=== PATIENT | male | born 1970 | race Two or more races ===

== ENCOUNTER 2020-11-14 06:22 | Inpatient (IN) | payer OTHER ==
[~2020-11-14] VITALS: Ht 175.3 cm; Wt 111.1 kg
[2020-11-14] VITALS (16 sets, daily range): BP systolic 92–116; BP diastolic 52–74
[~2020-11-14 06:22] MED LIST: ASPIRIN81 MG ORAL; METFORMIN HCL500 M1 ORAL
[2020-11-14] MEDS ORDERED: propofoL 1,000mg/100ml IV ONE (07:00)
[2020-11-14] MEDS ORDERED: ceFAZolin sod 1 GM in NS 55 ML IVPB ONE (07:00)
[2020-11-14] MEDS ORDERED: ATENOLOL25 MG ORAL (07:04)
[2020-11-14] MEDS ORDERED: LISINOPRIL-HCT1 EAC1 ORAL (07:04)
[2020-11-14] MEDS ORDERED: ATORVASTATIN CA20 MG ORAL (07:04)
[2020-11-14] MEDS ORDERED: Vancomycin 1gm vial IVPB ONE (07:23)
[2020-11-14] MEDS ORDERED: EPINEPHrine 1mg/1ml Amp ONE (07:23)
[2020-11-14] MEDS ORDERED: Bupivacaine 0.5% Inj 30 ml vial INJ ONE (07:24)
[2020-11-14] MEDS ORDERED: Thrombin 5000 units TOPIC ONE ×4 (07:24→07:56)
[2020-11-14] MEDS ORDERED: Bacitracin 50000 Units Vial ONE (07:24)
[2020-11-14] MEDS ORDERED: Lidocaine 1%/ 10mg/ml/EPI 0.01mg/ml 20ml INJ ONE (07:24)
[2020-11-14] MEDS ORDERED: fentaNYL 100 mcg/2 mL IV ONE (07:29)
[2020-11-14] MEDS ORDERED: Midazolam 2mg/2ml Inj ONE (07:29)
[2020-11-14] MEDS ORDERED: Lidocaine 1% MPF 10mg/ml 5ml ONE (07:29)
[2020-11-14] MEDS ORDERED: NS Irrig 1000ml IRRIG ONE ×2 (07:41→09:12)
[2020-11-14] MEDS: Gelfoam Size TOPIC ONE ×2 (07:43→09:12)
[2020-11-14] MEDS ORDERED: Succinylcholine 20mg/ml 10ml vial ONE (07:45)
[2020-11-14] MEDS ORDERED: Rocuronium Bromide 50mg/5ml Inj IV ONE (07:45)
[2020-11-14] MEDS ORDERED: Lacri-Lube Opth Oint 3.5gm ONE (07:52)
--- NOTE | 2020-11-14 08:11 | Anethesia Preoperative Eval ---
Anesthesia Pre-op PMH/ROS General Date of Evaluation: Nov 14, 2020 Time of Evaluation: 08:07 Anesthesiologist: Nirali ASA Score: ASA 3 Mallampati Score Class I : Soft palate, uvula, fauces, pillars visible Class II: Soft palate, uvula, fauces visible Class III: Soft palate, base of uvula visible Class IV: Only hard plate visible Mallampati Classification: Class III Surgeon: Nevaeh Diagnosis: Lumbar radiculopathy Surgical Procedure: Lumbar laminotomy Anesthesia History: none Family History: no anesthesia problems Allergies: Coded Allergies: No Known Allergies (Unverified , 11/10/20) Medications: see eMAR Patient NPO?: Yes Past Medical History Cardiovascular: Reports: HTN - stable on meds; Denies: CAD, ME, valve dz, arrhythmia, other Pulmonary: Denies: asthma, COPD, HAL, other Gastrointestinal/Genitourinary: Reports: GERD; Denies: CRI, ESRD, other Neurologic/Psychiatric: Reports: other - chronic pain Endocrine: Reports: DM - stable on pills; Denies: hypothyroidism, steroids, other HEENT: Denies: cataract (L), cataract (R), glaucoma, [place] (L), [place] (R), other Hematology/Immune: Denies: anemia, DVT, bleeding disorder, other Musculoskeletal/Integumentary: Reports: OA; Denies: RA, DJD, DDD, edema, other Other: obesity PMH Narrative: as above PSxH Narrative: knee arthroscopy Anesthesia Pre-op Phys. Exam Physician Exam Last Vital Signs Date Time Temp Pulse Resp B/P (MAP) Pulse Ox O2 Delivery O2 Flow Rate FiO2 11/14/20 07:41 Room Air 11/14/20 06:57 97.8 72 18 116/74 97 Constitutional: NAD Neurologic: CN 2-12 intact Cardiovascular: RRR, no M/R/G Respiratory: CTA Gastrointestinal: other - obesity Airway Exam Mallampati Score: Class III MO: limited Neck: short ROM: limited Teeth: missing Dentures: no upper, no lower Anesthesia Pre-op A/P Labs see chart Accucheck 122 at admission Studies Pre-op Studies: EKG - SR Risk Assessment & Plan Assessment: ASA 3 Plan: GA with ETT prone position, neuromonitoring Status Change Before Surgery: No Pre-Antibiotics Drug: Ancef 2gr. Given Within 1 Hr of Incision: Yes Time Given: 09:32 Preston Campoverde MD Nov 14, 2020 08:11
[2020-11-14] MEDS ORDERED: Glycopyrrolate 0.2mg/ml 1ml Vial ONE ×2 (08:30→11:29)
[2020-11-14] MEDS ORDERED: LR 1000ml ONE (08:30)
[2020-11-14] MEDS ORDERED: Neostigmine 1mg/ml 10ml Inj ONE (08:30)
[2020-11-14] MEDS ORDERED: Acetaminophen (Non formulary) 100 ML IV ONE (08:45)
--- NOTE | 2020-11-14 09:08 | Pre-Procedure Note/Attestation ---
Pre-Procedure Note/Attestation Complete Prior to Procedure Procedure Narrative: L45S1 B laminoforaminotomy/discectomy Indications for Procedure Pre-Operative Diagnosis: L4-S1 stenosis with radiculopathy Attestation I attest that I discussed the nature of the procedure; its benefits; risks and complications; and alternatives (and the risks and benefits of such alternatives), prior to the procedure, with the patient (or the patient's legal hospital insurance representative). I attest that, if there was a reasonable possibility of needing a blood transfusion, the patient (or the patient's legal hospital insurance representative) was given the [facility] standardized written summary, pursuant to the Scooby Jose Blood Safety Act ([place] Health and Safety Code # 1645, as amended). I attest that I re-evaluated the patient just prior to the surgery and that there has been no change in the patient's H&P, except as documented below: Fadi Herring MD Nov 14, 2020 09:08
--- NOTE | 2020-11-14 09:10 | Brief Operative Note ---
Immediate Post Operative Note Operative Note Pre-op Diagnosis: L4-S1 stenosis with radiculopathy Procedure: L4-S1 laminoforaminotomy Post-op Diagnosis: same as pre-op Findings: consistent w/pre-op dx studies Surgeon: pallavi [place] Clerk: Kezia IBRAIHM Anesthesiologist: axel Anesthesia: general Specimen: none Complications: none Condition: stable Fluids: 1200cc Estimated Blood Loss: volume - 150 Drains: hemovac Implant(s) used?: No Fadi Herring MD Nov 14, 2020 09:10
[2020-11-14] MEDS ORDERED: Sodium Chloride 10ml vial INJ ONE ×2 (09:34→09:48)
[2020-11-14] MEDS ORDERED: ePHEDrine 50mg/ml Inj ONE (09:34)
[2020-11-14] MEDS ORDERED: Morphine Sulfate 10mg/ml Inj ONE (09:44)
--- NOTE | 2020-11-14 10:12 | NUR ---
CASE MANAGEMENT:INITIAL REVIEW 49 YR OLD MALE FROM HOME FOR SCHEDULED SURGERY CC;L4-S1 STENOSIS W/RADICULOPATHY SI;L4-S1 LAMINOFORAMINOTOMY 98.8 72 18 116/74 97% ON RA COVID RAPID ~ NOT DETECTED TYPE AND CROSS IS;CEFAZOLIN IV VANCOMYCIN IV MAG SULFATE IV IN SURGICAL RECOVERY
[2020-11-14] MEDS ORDERED: Ketorolac 30mg Inj IV PRN (10:15)
[2020-11-14] MEDS ORDERED: LR 1000ml 1,000 ML IVLG SCH (10:15)
[2020-11-14] MEDS ORDERED: Hydromorphone 0.5mg/0.5ml inj IVP PRN ×2 (10:15→19:15)
[2020-11-14] MEDS ORDERED: DiphenhydrAMINE 50mg/ml Inj IVP PRN (10:15)
[2020-11-14] MEDS ORDERED: Meperidine 25mg/1ml Inj (FOR RIGORS ONLY) IV PRN (10:15)
--- NOTE | 2020-11-14 11:56 | Diagnostic Imaging Report ---
INDICATION: Pain, intraoperative TECHNIQUE: Intraoperative imaging Fluoroscopy time: 3.1 seconds Total dose: 0.91510 mGym2 Total number of images: 2 COMPARISON: None FINDINGS: Intraoperative images demonstrate surgical tool posterior to what is presumably the L4-5 disc. IMPRESSION: Intraoperative imaging, as described
[2020-11-14] MEDS ORDERED: Metoclopramide 10mg/2ml Inj IVP PRN (12:00)
--- NOTE | 2020-11-14 12:45 | Immediate Post-Op Evaluation ---
Immediate Post-Op Evalulation Immediate Post-Op Evalulation Procedure: L4-L5, L5-S1 laminotomy with decompression Date of Evaluation: Nov 14, 2020 Time of Evaluation: 12:44 IV Fluids: 100 Blood Products: none Estimated Blood Loss: 150 Urinary Output: 250 Blood Pressure Systolic: 96 Blood Pressure Diastolic: 54 Pulse Rate: 82 Respiratory Rate: 20 O2 Sat by Pulse Oximetry: 98 Temperature (Fahrenheit): 97.6 Pain Score (1-10): 1 Nausea: No Vomiting: No Complications none Patient Status: reacts, patent, none Hydration Status: adequate Preston Campoverde MD Nov 14, 2020 12:45
--- NOTE | 2020-11-14 13:15 | Operative Note - Dictated ---
DATE OF OPERATION: 11/14/2020 SURGEON: Fadi Herring MD. RECYCLABLE MATERIALS SORTER: Moi Mast PA-C. ANESTHESIOLOGIST: Preston Campoverde MD. ANESTHESIA: General endotracheal anesthesia. PREOPERATIVE DIAGNOSIS: Spinal stenosis L4 through S1. POSTOPERATIVE DIAGNOSIS: Spinal stenosis L4 through S1. PROCEDURE: 1. Right-sided L4/L5 laminoforaminotomy. 2. Right-sided L5-S1 laminoforaminotomy. 3. Left-sided L4-L5 laminoforaminotomy. 4. Left-sided L5-S1 laminoforaminotomy. 5. Lysis of adhesions/neurolysis, L5-S1 bilaterally. 6. Use of operating microscope. 7. Neurodiagnostic monitoring. 8. Use of fluoroscopy for localization purposes. ESTIMATED BLOOD LOSS: 150 mL. COMPLICATIONS: None. FINDINGS: Severe foraminal stenosis bilaterally L5-S1 requiring a thorough foraminotomy and facetectomy, partial bilaterally. INDICATIONS: The patient is a very pleasant 49-year-old with fairly significant and intractable back pain with lower extremity radiculopathy. Surgical indications were deemed necessary once conservative care had failed, epidurals only gave temporary relief, and positive neurodiagnostic monitoring findings were noted. RISK NOTE: The patient was explained in detail risks and benefits of surgery to include, but not be limited to those of bleeding, infection, damage to nerves, vessels, tendons, anesthetic risk, allergic reaction, aspiration, possibly . The patient understood and wished to proceed. OPERATIVE PROCEDURE IN DETAIL: The patient was taken to the operating suite. After general endotracheal anesthesia was induced, Brooks catheter was placed. He was turned prone onto a radiolucent table with Abimael frame. The back was then prepped in the usual sterile fashion. The spinal needles were placed at what was felt to be the L5-S1 level. Radiographically L5-S1, S1-S2 was confirmed. At this point, an incision was marked out from L4 through S1. Skin was infiltrated with lidocaine and Marcaine with epinephrine. Incision was sharply carried down through subcutaneous. Subperiosteal dissection was carried out at L4 through S1. Fluoroscopic confirmation of the L4-L5 level was obtained. A self-retaining retractor was put into place. Attention was first turned to the L4-L5 level and a right-sided laminoforaminotomy was performed using standard technique using high-speed drill, Kerrison punch, curved curettes, ligamentum flavum was removed in a piecemeal fashion. A 30% medial facetectomy was performed to achieve decompression of the foramen as well as the lateral gutters. Once the decompression was fully achieved, attention was turned to the left side and under microscopic visualization an identical left-sided laminoforaminotomy was performed at L4-L5. Subsequently, a laminoforaminotomy at L5-S1 was performed first on the left than on the right. Please note that the leading edge of the lamina of L5 was quite stenotic and downsloping, which required a thorough laminotomy of the northern border of the L5 bilaterally which decompressed the inlet of the neural foramen at L5-S1. A generous laminoforaminotomy from L5 and S1 was required to remove portion of the leading edge of the facet joint so as to decompress the traversing area of the foramen. Extensive scarring and epidural adhesions bilaterally at L5-S1 was noted and meticulous neurolysis was required to allow for free passage of the nerve. Copious irrigation was performed. FloSeal was applied at both lateral gutters at L4-L5 and L5-S1 bilaterally. Once satisfied with the decompression, decision was made to close. A 400 mg of vancomycin powder was placed deep to the fascia. Fascia was repaired using #1 Vicryl. Suprafascial drain was placed and the remaining 100 mg of vancomycin was placed above the fascia. The deep fascia was repaired using #1 figure of eight sutures. The subcutaneous closure was performed using 2-0 Vicryl and Dermabond. Sterile dressing was applied. The patient was turned onto his back, awakened and at time of this dictation was awaiting extubation. Fadi Herring M.D. DR: JULIO JOB#: [id number] CC:
--- NOTE | 2020-11-14 14:00 | NUR ---
NURSE NOTES: Received report from Cindy CANTRELL, patient laying in bed a/a/o x4 with no sign of distress or other issues at this time. patient has a hemovac, with no drainage as right now. Brooks cath was removed prior to coming to the floor, 300ml out. surgical dressing dry and intact, ice pack placed. SCD's in place. RN will review orders and will carry on as indicated. I will f/u as needed.
[2020-11-14] MEDS: D5 1/2NS 1,000 ML IV SCH (15:00)
[2020-11-14] MEDS ORDERED: HYDROcodone/Acetamin 10/325 tab ORAL SCH (17:30)
[2020-11-14] MEDS ORDERED: HYDROcodone/Acetamin 10/325 tab ORAL ONE (17:30)
[2020-11-14] MEDS: Docusate 100mg cap ORAL SCH (18:08)
[2020-11-14] MEDS: ceFAZolin sod 1 GM in D5W 55 ML IV SCH (18:15)
[2020-11-14] MEDS ORDERED: Milk of Magnesia 30ml Ud ORAL PRN (19:15)
[2020-11-14] MEDS ORDERED: Chloraseptic Spray 20mL Bottle ORAL PRN (19:15)
--- NOTE | 2020-11-14 19:30 | NUR ---
NURSE HAND-OFF: Important Events on Shift: Patient Status: full code/ stable Diet: CCHO medium diet Pending Orders: Pending Results/Labs: Pending MD notification: Latest Vital Signs: Temperature 97.7 , Pulse 84 , B/P 98 /66 , Respiratory Rate 20 , O2 SAT 100 , Nasal Cannula, O2 Flow Rate 3 . Vital Sign Comment: stable Latest Dexter Fall Score: 20 Fall Risk: Low Risk Safety Measures: Call light Within Reach, Bed Alarm , Side Rails Side Rails x1, Bed position Low and Locked. Fall Precautions: needs assistance Report given to Devin CANTRELL, patient in stable condition. - patient is able to void after Brooks was removed. - Hemovac in place draining well. total put put during my shift 20ml - surgical dressing dry and intact
--- NOTE | 2020-11-14 20:10 | NUR ---
NURSE NOTES: Patient in bed, awake, alert x 4. Able to make needs known. No complaint of pain or discomfort at the moment. Skin is warm and dry to touch. Noted with posterior hemovac, intact, draining. Iv site noted, iv fluid is infusing as ordered. Respiration is even and unlabored. Bed in low and locked position. provided safe environment. Call light is at bedside. Will continue plan of care.
[2020-11-14] MEDS: NovoLOG Insulin Flexpen SUBQ SCH (21:00)
--- NOTE | 2020-11-14 21:00 | Consultation ---
DATE OF CONSULTATION: 11/14/2020 REFERRING PHYSICIAN: Fadi Herring M.D. Dr. Fadi Herring, thank you kindly for consulting me to evaluate and render an opinion on as to how to proceed in the management of this patient's acute postoperative lumbar spine pain after his multiple-level decompressive surgery today. The patient is a pleasant 49-year-old gentleman who injured his lumbar spine in a work-related injury. After today's multilevel lumbar spine decompressive surgery, the patient complained of significant discomfort and you consulted me to help with this patient's postoperative care and pain management. I saw the patient at bedside with the nurse, TAMIA Morrow. I discussed the case with yourself, Dr. Herring, along with the hospital pharmacist and the recovery room nurse, TAMIA Christian. I spent over 75 minutes in consultation with an additional 30 minutes in medical record review. Multiple records were reviewed including utilization review and surgical authorization by [employer] on October 24, 2020, authorizing lumbar spine surgery with hospitalization as certified. Further records reviewed include preoperative history and physical by Dr. Chase Jean dated November 10, 2020 along with diagnostic testing. I also reviewed reports from Dr. Fadi Herring, surgical outpatient clinic, date of service September 15, 2020 along with reports from the patient's research attorney on October 30, 2020 from the [employer]. Multiple records were reviewed from today's date of surgery at [facility] dated November 14, 2020 including operative report and postoperative spine surgery orders by Dr. Fadi Herring, consent for surgical treatment, consent for anesthesia, consent for blood products, medication administration record, medication reconciliation order form, PACU record, PACU orders, anesthesia record, pre- and post-anesthesia evaluation record, surgical invasive procedure checklist, perioperative nurse plan of care, initial nursing assessment, guidelines for prophylactic antibiotics, guidelines for DVT prophylaxis, Farris-Junior diagram for cognitive disability. PAST MEDICAL HISTORY: 1. Acute postoperative lumbar spine pain status post multiple-level bilateral lumbar spine decompressive surgery by Dr. Fadi Herring in October 2020. 2. Work-related injury. 3. Obesity. 4. Diabetes. 5. Hypertension. 6. Hypercholesterolemia. 7. Distant tobacco usage. PAST SURGICAL HISTORY: Bilateral knee arthroscopies. FAMILY HISTORY: Father at age 67. Mother at age 78. Brother from cancer. SOCIAL HISTORY: The patient lives at home with his near [place], [place]. The patient quit tobacco usage a year ago after a decade of usage. The patient drinks alcohol rarely and denies marijuana usage. ALLERGIES: No known drug allergies. REVIEW OF SYSTEMS: Per attending physician. PHYSICAL EXAMINATION: VITAL SIGNS: Age 49, height 5 feet 9 inches, weight 111 kg, body mass index 36. Current vital signs, afebrile, pulse 84, respirations 20, blood pressure 100/62, oxygen saturation 100% on room air. HEENT: Normocephalic and atraumatic. Extraocular muscles intact. Pupils are equal, round, and accommodative. No Ruvalcaba palsy. No Brooklynn syndrome. No nuchal rigidity. CHEST: Clear to auscultation. Bibasilar crackles, likely secondary to chronic smoking and obesity along with postoperative atelectasis. No wheezing, rales, rhonchi, or accessory muscle use noted. HEART: Regular rate and rhythm. Positive S4. Normal S1, S2. No S3 appreciated. ABDOMEN: Positive obesity. Positive bowel sounds. No rebound or guarding. SPINE: Lumbar spine shows pain with log-rolling. A lumbar spine Hemovac drain is in place holding to suction. NEUROLOGIC: The patient is grossly moving all extremities x4. He has 5/5 dorsiflexion and 5/5 plantar flexion in bilateral lower extremities. NEUROLOGIC: Detailed neurologic exam deferred to Dr. Herring. GENITOURINARY: Deferred. LABORATORY AND DIAGNOSTIC DATA: Laboratory studies from November 13, 2020 show urinalysis is negative. INR 1.1. PTT 27. Glucose 90, sodium 142, potassium 4.1, chloride 102, bicarb 30, BUN 14, creatinine 1.0, calcium 10, total protein 7.2, albumin 4.6, alk phos 43, AST 27, ALT 40, total bilirubin 0.6. White count 8, hematocrit 43, platelets 260. Glycosylated hemoglobin high normal at 6.8. Preoperative 12-lead EKG shows normal sinus rhythm, ventricular rate 74. No evidence for acute cardiac ischemia. Preoperative chest x-ray dated November 10, 2020 shows no acute cardiopulmonary process. MRI of the lumbar spine dated February 17, 2020 shows impression of L4-5 with mild to moderate bilateral facet degenerative changes with a 4 mm to 5 mm anterior-posterior diameter broad-based posterior disc osteophyte complex with mild spinal stenosis. L5-S1, mild bilateral facet degenerative disease with minimal retrolisthesis of L5 over S1. There is a 3 mm to 4 mm in AP diameter broad-based posterior disc osteophyte complex with moderate to severe bilateral neural foraminal narrowing. IMPRESSION: 1. Acute postoperative lumbar spine pain status post multiple-level bilateral lumbar spine decompressive surgery by Dr. Fadi Herring in October 2020. 2. Work-related injury. 3. Obesity. 4. Diabetes. 5. Hypertension. 6. Hypercholesterolemia. 7. Distant tobacco usage. TREATMENT RECOMMENDATIONS: After my examination of the patient and review of the medical chart, I have devised the following analgesic plan. The patient does not appear to be anxious and with his obesity, I would try to avoid the class of benzodiazepines, which might potentiate respiratory depression while we use potent opioid analgesics to help with his postoperative pain. I have started him with a dose of Dilaudid 0.5 mg intravenously every 2 hours p.r.n. for severe breakthrough pain. The patient does state that he has tolerated hydrocodone after a root canal surgery in the past. Therefore, I will order a dose of [place] 10/325 mg to be trialed orally every 3 hours p.r.n. for moderate pain complaints. I have added a dose of Fioricet 1 tablet orally every 8 hours in case of any postoperative headaches. In case of itching or insomnia symptoms, I have ordered Benadryl 25 mg orally every 6 hours p.r.n. I have also ordered a rescue dose of Zofran as an antiemetic p.r.n. at a dose of 4 mg intravenously every 4 hours. In case of any postoperative sore throat complaints, I have ordered Chloraseptic spray to be placed at the bedside. I will empirically place the patient on Pepcid 20 mg b.i.d. to help with GI ulcer prophylaxis, and I have ordered a p.r.n. dose of Mylanta 30 mL q.6h. in case of any GERD symptom exacerbations. The patient has been placed on Colace 100 mg b.i.d. to help with bowel regularity, and I have ordered a rescue laxative dose of milk of magnesia daily at a dose of 30 mL. For the patient's hypertension and diabetes, we will monitor his blood pressure frequently. Currently, his systolic blood pressure is 100 mmHg. His outpatient antihypertensive medications will be placed on hold for now. We will continue to evaluate if high blood pressure develops. The patients with high blood pressure often has labile blood pressure readings in the immediate postoperative period. The patient states that his blood sugars are normally fairly well controlled as he takes Accu-Cheks at home b.i.d. We will place him on a sliding scale insulin protocol here in the hospital and restrict his diet to a diabetic ADA 2000 calories. Metformin will be restarted in the morning at his baseline home dose. I have ordered incentive spirometer to encourage good pulmonary toilet with his smoking history. Sequential compression pneumatic devices have been placed by the surgeon, Dr. Herring, for DVT prophylaxis. We will see how the patient progresses with physical therapy training in the morning, and we will follow the output from the indwelling lumbar spine drain catheter. Chivo Segundo M.D. DR: ALFONSO JOB#: [id number] CC:
--- NOTE | 2020-11-14 22:00 | NUR ---
NURSE NOTES: Dr. Segundo called, new orders received, noted and carried out.
[2020-11-15] MEDS: D5 1/2NS 1,000 ML IV SCH ×2 (00:16→10:00)
[2020-11-15] MEDS: ceFAZolin sod 1 GM in D5W 55 ML IV SCH ×2 (01:31→08:55)
[2020-11-15 03:52] VITALS: BP 111/68
[2020-11-15 06:06] LABS: ANION GAP 6 mmol/L (5-15); BLOOD UREA NITROGEN 10 mg/dL (7-18); CALCIUM 8.8 MG/DL (8.5-10.1); CARBON DIOXIDE 30 MMOL/L (21-32); CHLORIDE 102 MMOL/L (98-107); CREATININE 1.1 MG/DL (0.55-1.30); POTASSIUM 4.1 MMOL/L (3.5-5.1); SODIUM 138 MMOL/L (136-145)
[2020-11-15] MEDS: NovoLOG Insulin Flexpen SUBQ SCH ×2 (06:30→11:30)
--- NOTE | 2020-11-15 07:30 | NUR ---
NURSE NOTES: Patient lying in bed awake. No complain of pain or distress at this time. Skin intact and dry. Surgical dressing intact and dry. Hemovac patent and draining well. IV dressing intact and dry. Bed lowest position and side rails up. Call light within reach. Will continue to monitor.
[2020-11-15 08:00] VITALS: BP 121/79
--- NOTE | 2020-11-15 08:33 | 48 Hour Post Anesthesia Eval ---
Post Anesthesia Evaluation Procedure: L4-L5, L5-S1 laminotomy with decompression Date of Evaluation: Nov 15, 2020 Time of Evaluation: 08:32 Blood Pressure Systolic: 124 0: 76 Pulse Rate: 78 Respiratory Rate: 20 Temperature (Fahrenheit): 97.8 O2 Sat by Pulse Oximetry: 98 Airway: patent Nausea: No Vomiting: No Pain Intensity: 2 Hydration Status: adequate Cardiopulmonary Status: stable Mental Status/LOC: patient returned to baseline Follow-up Care/Observations: n/a Post-Anesthesia Complications: none Follow-up care needed: N/A Preston Campoverde MD Nov 15, 2020 08:33
[2020-11-15] MEDS: Docusate 100mg cap ORAL SCH (08:54)
[2020-11-15] MEDS: HYDROcodone/Acetamin 10/325 tab ORAL PRN ×2 (08:55→13:01)
--- NOTE | 2020-11-15 08:55 | NUR ---
P.T Note: P.T evaluation completed and tx initiated per spinal protocol. Please refer to P.T evaluation for current functional status.
[2020-11-15] MEDS ORDERED: metFORMIN 500mg tab ORAL SCH (09:00)
--- NOTE | 2020-11-15 10:51 | NUR ---
CASE MANAGEMENT:REVIEW SI;POD #1 L4-S1 LAMINOFORAMINOTOMY 98.8 100 20 121/79 95% ON RA IS;PEPCID PO BID NORCO PO Q3 PRN IVF D5NS @ 100 ML/HR MED SURG STATUS DCP;FROM HOME PLAN; PT PER PROTOCOL ENCOURAGE INCENTIVE SPIROMETER
[2020-11-15] MEDS ORDERED: ASPIRIN EC81 MG ORAL (11:55)
[2020-11-15] MEDS ORDERED: NAPROXEN500 M2 ORAL (11:55)
[2020-11-15 12:00] VITALS: BP 117/83
--- NOTE | 2020-11-15 13:05 | Pain Management Progress Note ---
Allergies: Coded Allergies: No Known Allergies (Unverified , 11/10/20) Vitals Vital Signs Date Time Temp Pulse Resp B/P (MAP) Pulse Ox O2 Delivery O2 Flow Rate FiO2 11/15/20 12:00 97.9 119 18 117/83 (94) 96 11/15/20 09:00 Room Air 11/15/20 08:33 78 20 98 11/15/20 08:00 98.8 100 18 121/79 (93) 95 Medications Current Medications Acetaminophen (Tylenol) 650 mg Q4H PRN ORAL Temp >100.5; Start 11/14/20 at 21:45; Stop 12/14/20 at 21:44 Acetaminophen/ Butalbital/ Caffeine (Fioricet) 1 tab Q8H PRN ORAL headache; Start 11/14/20 at 19:15; Stop 12/14/20 at 19:14 Acetaminophen/ Hydrocodone Bitart (Barco 10/325) 1 tab Q3H PRN ORAL Moderate Pain (Pain Scale 4-6) Last administered on 11/15/20at 08:55; Start 11/14/20 at 19:15; Stop 11/21/20 at 19:14 Al Hydroxide/Mg Hydroxide (Mylanta) 30 ml Q6H PRN ORAL GERD; Start 11/14/20 at 19:15; Stop 12/14/20 at 19:14 Dextrose (Dextrose 50%) 25 ml Q30M PRN IV Hypoglycemia; Start 11/14/20 at 17:30; Stop 02/12/21 at 17:29 Dextrose (Dextrose 50%) 50 ml Q30M PRN IV Hypoglycemia; Start 11/14/20 at 17:30; Stop 02/12/21 at 17:29 Dextrose/Sodium Chloride 1,000 ml @ 100 mls/hr Q10H IV Last administered on 11/15/20at 00:16; Start 11/14/20 at 14:00; Stop 12/14/20 at 13:59 Diphenhydramine HCl (Benadryl) 25 mg Q6H PRN ORAL Itching/insomnia; Start 11/14/20 at 19:15; Stop 12/14/20 at 19:14 Docusate Sodium (Colace) 100 mg TWICE A DAY ORAL Last administered on 11/15/20at 08:54; Start 11/14/20 at 18:00; Stop 12/14/20 at 17:59 Famotidine (Pepcid) 20 mg BID ORAL Last administered on 11/15/20at 08:54; Start 11/15/20 at 09:00; Stop 02/13/21 at 08:59 Hydromorphone HCl (Dilaudid) 0.5 mg Q2H PRN IVP Severe Breakthru Pain (>7); Start 11/14/20 at 19:15; Stop 11/21/20 at 19:14 Insulin Aspart (NovoLOG) BEFORE MEALS AND HS SUBQ ; Start 11/14/20 at 21:00; Stop 02/12/21 at 20:59 Magnesium Hydroxide (Mom) 30 ml DAILYPRN PRN ORAL Constipation; Start 11/14/20 at 19:15; Stop 12/14/20 at 19:14 Metformin HCl (Glucophage) 1,000 mg TWICE A DAY ORAL Last administered on 11/15/20at 08:54; Start 11/15/20 at 09:00; Stop 12/15/20 at 08:59 Ondansetron HCl (Zofran) 4 mg Q4H PRN IVP Nausea & Vomiting; Start 11/14/20 at 19:15; Stop 12/14/20 at 19:14 Phenol/Menthol (Chloraseptic) 1 spray Q2H PRN ORAL sore throat; Start 11/14/20 at 19:15; Stop 02/12/21 at 19:14 Laboratory Laboratory Tests 11/15/20 04:58: Sodium Level 138, Potassium Level 4.1, Chloride Level 102, Carbon Dioxide Level 30, Anion Gap 6, Blood Urea Nitrogen 10, Creatinine 1.1, Estimat Glomerular Filtration Rate > 60, Glucose Level 136H, Calcium Level 8.8 11/15/20 11:51: POC Whole Blood Glucose [Pending] Plan: Patient seen with nursing Brian. Discussed with surgeon Dr Herring. A+O x 3. Neuro intact. VSS. No chest pain or SOB. Pain level 5 / 10 on the visual-analog pain scale. Continue pain regimen as ordered. Barco well-tolerated. MAR medication list reviewed. Advancing diet tolerated without emesis. BP and blood sugars WNL. GI: +BS +flatus No BM Encourage incentive spirometer usage. Encourage advancing ambulation with physical therapy as tolerated. Already ambulated > 200 feet. SCDs for mechanical prophylaxis against deep venous thrombosis and PEs. Discussed discharge planning with RNs & surgeon to help expedite hospital discharge. Pt feels comfortable with discharge trial home later today. can pickup pt and assist with ADL in their [place] home. Patient will f/u with surgeon in outpt surgical clinic. Rx left for outpatient pain medication usage for #50 Barco 10/325. Hemovac drain output ~50 cc over the past shift; 30 cc during nightshift. With the RN Brian at bedside, lumbar spine wound site dressing removed sterilely. Suture-line appears dry and intact with [place] sealant intact. No erythema or exudate noted. At end-expiration, with the hemovac drain taken [id number], I personally removed the indwelling lumbar spine drain catheter sterilely. Tip intact. Drain hole & incision-line swabbed with alcohol. Dressing with sterile bandage. No complications. Chivo Segundo MD Nov 15, 2020 13:05
--- NOTE | 2020-11-15 13:07 | NUR ---
NURSE NOTES: Seen and evaluated by and removed Hemovac by . Per : he spoke to and cleared to discharge patient today. Order noted and carried out.
--- NOTE | 2020-11-15 13:35 | NUR ---
SHUTTLE [employer]GG[employer] OPERATOR NOTE DME ORDER NOTED. CALL MADE TO JOHN FADIA ODESSA [phone] FOR ORDER OF DME (RAISED TOILET SEAT). NO ANSWER AT TIME OF CALL. VM LEFT REQUESTING CALL BACK. WILL FOLLOW UP.
--- NOTE | 2020-11-15 14:35 | NUR ---
NURSE NOTES: Patient discharged with family member instable condition. Discharge instruction given to patient and verbalized understanding. Belonging and prescription given to patient. Instructed to follow up with home medication and make follow up appointment with MD and verbalized understanding. IV and ID removed. Brought down to private car by wheelchair.
--- NOTE | 2020-11-15 15:10 | NUR ---
NURSE NOTES: Spoke to regarding home medication Aspirin. Per : hold Aspirin for 5 days and continue. Notified patient to hold Aspirin for 5 days and continue. Patient verbalized understanding.
--- NOTE | 2020-11-17 12:29 | Discharge Summary ---
Discharge Summary Discharge Summary _ Date of admission: 11/14/2020 Date of discharge: 11/15/[address] Herring History of Present Illness and Brief Hospital Course Mr. 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 The patient had significant and intractable back pain with lower extremity radiculopathy. Conservative management and epidurals did not adequately control his symptoms. At this point, surgical intervention was deemed appropriate. Patient agreed to have surgery. He underwent bilateral L4-L5, L5-S1 laminal foraminotomy as well as lysis of adhesions/neurolysis at L5-S1 bilaterally. He was placed on Dilaudid for a severe breakthrough pain. He was also given [place] for moderate pain complaints. Fioricet was added for any postoperative headaches. Benadryl was given for itching or insomnia. Zofran was given as an antiemetic he was also provided with Chloraseptic spray for postoperative sore throat. Other regimen include pepcid for GI ulcer prophylaxis, as needed Mylanta for GERD symptom exacerbations, Colace for bowel regularity, and a rescue laxative dose of milk of magnesia. His blood pressure was monitored frequently. He was encouraged to use incentive spirometer for good pulmonary toilet with his smoking history. He was also placed on sequential compression pneumatic devices for DVT prophylaxis. After a period of observation, patient was medically stable for discharge. Patient was discharged home on 11/15/2020 in stable condition. Consultants: Anesthesiology Dr. Segundo Discharge Condition Improved and stable Discharge Activity Advance as tolerated Discharge Diet Diabetic diet Final diagnoses Obesity Diabetes mellitus Hypertension Hypercholesterolemia Ex-smoker Work-related injury Foraminal stenosis bilaterally at L5-S1 Status post bilateral L4-L5 L5-S1 laminal foraminotomy Status post lysis of adhesions/neurolysis at L5-S1 bilaterally I have been assigned to dictate discharge summary for this account. I was not involved in the patient's management Toño De La Cruz Nov 17, 2020 12:29
== END 2020-11-15 14:35 | disposition home or self-care (01) | DRG 517 ==
LOC: SDSOVERFLO 06:22 → 3E 14:00
PROC: 01NB0ZZ Release Lumbar Nerve, Open Approach (ICD-10-PCS; principal; 2020-11-14 08:30)
PROC: 01NR0ZZ Release Sacral Nerve, Open Approach (ICD-10-PCS; principal; 2020-11-14 08:30)
DX: M48.061 Spinal stenosis, lumbar region without neurogenic claudication (principal); M48.07 Spinal stenosis, lumbosacral region; M54.16 Radiculopathy, lumbar region; M54.17 Radiculopathy, lumbosacral region; I10 Essential (primary) hypertension; E11.9 Type 2 diabetes mellitus without complications; G96.12 Meningeal adhesions (cerebral) (spinal); E66.9 Obesity, unspecified
CPT/HCPCS: 36415; 72020; 76000; 80048; 82962; 86850; 86900; 86901; 87081; 94003; 94150; J1815; J2250; J2710